=== PATIENT | male | born 1980 | race Caucasian/White ===

== ENCOUNTER 2018-06-28 23:56 | Emergency (ER) | payer OTHER ==
[~2018-06-28] VITALS: Ht 170.2 cm; Wt 102.1 kg
[2018-06-29] MEDS ORDERED: ATIVAN0.5 M1 PO (00:46)
[2018-06-29 01:24] VITALS: BP 114/74
== END 2018-06-29 01:24 | disposition home or self-care (01) ==
LOC: ER 23:56
DX: F41.9 Anxiety disorder, unspecified (principal)